=== PATIENT | male | born 1965 | race African-American/Black ===

== ENCOUNTER 2018-07-12 16:33 | Emergency (ER) | payer BC ==
[2018-07-12] MEDS ORDERED: MORPHINE SULFATE 10 MG/ML INJ IM ONE (16:51)
[2018-07-12] MEDS ORDERED: DIPH/PERTUSS(ACELL)/TETANUS VAC/PF 0.5 ML SYR (>=10YO) IM ONE (16:53)
--- NOTE | 2018-07-12 17:43 | RADIOLOGY REPORT (SQ) ---
EXAM DESCRIPTION: HAND RIGHT 3 VIEWS COMPLETED DATE/TIME: 07/12/2018 5:29 pm REASON FOR STUDY: crush injury COMPARISON: None. EXAM PARAMETERS: NUMBER OF VIEWS: Three views. TECHNIQUE: AP, lateral and oblique radiographic images acquired of the right hand. LIMITATIONS: None. FINDINGS: MINERALIZATION: Normal. BONES: Comminuted open fracture of the distal phalanx of the right 2nd digit. No other fracture Or d islocation. . JOINTS: No effusion. SOFT TISSUES: Distal soft tissue swelling. No radiopaque foreign body. OTHER: No other significant finding. IMPRESSION: Comminuted open fracture of the distal phalanx of the right 2nd digit. TECHNICAL DOCUMENTATION: JOB ID: [id number] [place]-72 2010 [employer]- All Rights Reserved Reading location - IP/workstation name: [employer]
[2018-07-12] MEDS ORDERED: KETOROLAC TROMETHAMINE INJ/PF 30 MG/1 ML SDV IV ONE (17:57)
--- NOTE | 2018-07-12 17:57 | ER Document Report ---
ED Hand/Wrist Injury - General Chief Complaint: Finger Injury Stated Complaint: FINGER INJURY Time Seen by Provider: 07/12/18 17:20 Primary Care Provider: JOVANI OWUSU MD [Primary Care Provider] - Follow up as needed Notes: 53-year-old male to the emergency department for evaluation of laceration to the second digit on the right hand and third digit on the right hand. Patient dropped a heavy dresser on it while moving the object. Unknown last tetanus. Bleeding has been controlled. Appears to be a near complete amputation. Sensation is lost to the distal tip. TRAVEL OUTSIDE OF THE [place] IN LAST 30 DAYS: No - HPI Injury to: Index finger Onset: Just prior to arrival Where: Home Timing: Constant Quality of pain: Achy Severity: Moderate Pain Level: 3 Context: Crush - Related Data Allergies/Adverse Reactions: No Known Allergies Allergy (Verified 07/12/18 16:35) Past Medical History - General Information source: Patient - Social History Smoking Status: Never Smoker Frequency of alcohol use: None Drug Abuse: None Family History: None, Reviewed & Not Pertinent Patient has suicidal ideation: No Patient has homicidal ideation: No - Past Medical History Cardiac Medical History: Reports: Hx Hypercholesterolemia, Hx Hypertension Renal/ Medical History: Denies: Hx Peritoneal Dialysis Past Surgical History: Reports: Hx Orthopedic Surgery - left foot surgery for osteomyelitis in the distant past - Immunizations Hx Diphtheria, Pertussis, Tetanus Vaccination: Yes Review of Systems - Review of Systems Constitutional: denies: Fever, Weakness Cardiovascular: denies: Chest pain, Palpitations, Heart racing Respiratory: denies: Cough, Short of breath, Wheezing Gastrointestinal: denies: Abdominal pain, Diarrhea, Nausea, Vomiting Musculoskeletal: See HPI, Other - Fingertip laceration/amputation and pain. Neurological/Psychological: Numbness - The distal tip of the second digit on the right hand Physical Exam - Vital signs Vitals: Temp Pulse Resp BP Pulse Ox 98.0 F 80 16 135/89 H 98 07/12/18 17:18 07/12/18 17:18 07/12/18 17:18 07/12/18 17:18 07/12/18 17:18 Interpretation: Normal - General General appearance: Appears well, Alert - Respiratory Respiratory status: No respiratory distress Chest status: Nontender Breath sounds: Normal Chest palpation: Normal - Cardiovascular Rhythm: Regular Heart sounds: Normal auscultation Murmur: No - Extremities General upper extremity: Other - There is a near complete tuft amputation of the second digit of the distal phalanx on the right hand. Sensation is absent. Tendon function appears to be intact. Both bone present. There is 2 small lacerations on the third digit dorsally of the right hand. - Skin Notes: Laceration/amputation as noted above. Course - Re-evaluation Re-evalutation: 07/12/18 18:28 I have consulted with the hand surgeon, Dr. Mullins who is coming in to see the patient here shortly. Antibiotics, pain medication, tetanus has been updated. 07/12/18 18:29 Hand X-Ray 07/12/18 16:52 IMPRESSION: Comminuted open fracture of the distal phalanx of the right 2nd di git. 07/12/18 20:42 Orthopedic hand specialist has attempted to repair the amputated fingertip. Has placed in splint. Antibiotics, tetanus and pain medication have been given. He will follow-up with orthopedic surgeon on Saturday. At this time will DC in stable condition. - Vital Signs Vital signs: Temp Pulse Resp BP Pulse Ox 98.0 F 74 16 142/94 H 98 07/12/18 17:18 07/12/18 18:00 07/12/18 18:00 07/12/18 18:00 07/12/18 18:00 Discharge - Discharge Clinical Impression: Traumatic amputation of fingertip Qualifiers: Encounter type: initial encounter Qualified Code(s): S68.119A - Complete traumatic metacarpophalangeal amputation of unspecified finger, initial encounter Condition: Good Disposition: HOME, SELF-CARE Instructions: Open Finger Tuft Fracture ([facility]) Additional Instructions: Please follow-up with the hand specialist Dr. Mullins. Pain medication as needed. Antibiotics as prescribed. Return for any worsening symptoms or concerns. Prescriptions: Clindamycin HCl 300 mg PO Q6H 7 Days #28 capsule Hydrocodone/Acetaminophen [[place] 5-325 mg Tablet] 1 tab PO TID PRN 3 Days #10 tablet PRN Reason: Referrals: JOVANI OWUSU MD [Primary Care Provider] - Follow up as needed JOSE DE JESUS MULLINS DO [ACTIVE STAFF] - 07/14/18
[2018-07-12] MEDS ORDERED: CEFAZOLIN 1 GM/D5W RTU 1 GM/50 ML RTUPB IV SCH (18:00)
[2018-07-12] MEDS ORDERED: LIDOCAINE 1% INJ-PF (10 MG/ML) 30 ML SDV INJ ONE (18:22)
[2018-07-12] MEDS ORDERED: FENTANYL CITRATE INJ/PF 100 MCG/2 ML AMPUL IV ONE (19:16)
[2018-07-12] MEDS ORDERED: CEFAZOLIN 1 GM/D5W RTU 1 GM/50 ML RTUPB IV ONE (19:56)
[2018-07-12] MEDS ORDERED: HYDROCODONE/ACETAMINOPHEN 5-325 MG (6 TAB/ER DISP) PO PRN (20:26)
--- NOTE | 2018-07-12 21:07 | PDOC H&P ---
History of Present Illness Admission Date/PCP: JOVANI OWUSU Patient complains of: Crush injury right index middle finger. History of Present Illness: JERALD SLOAN is a 53 year old male who was moving a heavy dresser when it dropped onto his right index and middle finger. Patient had notable open wound and bleeding at the time of injury. Promptly presents emergency room where he was started on tetanus and antibiotics. Patient complains of numbness along the tip of the index finger no numbness along the middle finger. Pain 3/5. Past Medical History Cardiac Medical History: Reports: Hyperlipidema, Hypertension Past Surgical History Past Surgical History: Reports: Orthopedic Surgery - left foot surgery for osteomyelitis in the distant past Social History Smoking Status: Never Smoker Frequency of Alcohol Use: None Hx Recreational Drug Use: No Hx Prescription Drug Abuse: No Family History Family History: None, Reviewed & Not Pertinent Parental Family History Reviewed: No Children Family History Reviewed: No Sibling(s) Family History Reviewed.: No Medication/Allergy Home Medications: Aspirin [Aspirin 81 mg Chewable Tablet] 81 mg PO DAILY #0 tab.chew 12/12/14 Clindamycin HCl 300 mg PO Q6H 7 Days #28 capsule 07/12/18 Hydrocodone/Acetaminophen [[place] 5-325 mg Tablet] 1 tab PO TID PRN 3 Days #10 tablet 07/12/18 Allergies/Adverse Reactions: No Known Allergies Allergy (Verified 07/12/18 16:35) Review of Systems Constitutional: ABSENT: chills, fever(s), headache(s), weight gain, weight loss Eyes: ABSENT: visual disturbances Ears: ABSENT: hearing changes Cardiovascular: ABSENT: chest pain, dyspnea on exertion, edema, orthropnea, palpitations Respiratory: ABSENT: cough, hemoptysis Gastrointestinal: ABSENT: abdominal pain, constipation, diarrhea, hematemesis, hematochezia, nausea, vomiting Genitourinary: ABSENT: dysuria, hematuria Musculoskeletal: PRESENT: as per HPI Integumentary: ABSENT: rash, wounds Neurological: ABSENT: abnormal gait, abnormal speech, confusion, dizziness, focal weakness, syncope Psychiatric: ABSENT: anxiety, depression, homidical ideation, suicidal ideation Endocrine: ABSENT: cold intolerance, heat intolerance, menstrual abnormalities, polydipsia, polyuria Hematologic/Lymphatic: ABSENT: easy bleeding, easy bruising, lymphadenopathy Physical Exam Vital Signs: Temp Pulse Resp BP Pulse Ox 98.0 F 74 16 125/84 98 02/23/19 17:18 07/12/18 18:00 07/12/18 20:30 07/12/18 20:30 07/12/18 20:30 Intake & Output 07/11/18 07/12/18 07/13/18 06:59 06:59 06:59 Intake Total 50 Balance 50 General appearance: PRESENT: no acute distress, well-developed, well-nourished Head exam: PRESENT: atraumatic, normocephalic Eye exam: PRESENT: conjunctiva pink, EOMI, PERRLA. ABSENT: scleral icterus Ear exam: PRESENT: normal external ear exam Mouth exam: PRESENT: moist, tongue midline Neck exam: PRESENT: full ROM. ABSENT: carotid bruit, JVD, lymphadenopathy, thyromegaly Cardiovascular exam: PRESENT: RRR. ABSENT: diastolic murmur, rubs, systolic murmur Pulses: PRESENT: normal dorsalis pedis pul, +2 pedal pulses bilateral Vascular exam: PRESENT: normal capillary refill GI/Abdominal exam: PRESENT: normal bowel sounds, soft. ABSENT: distended, guarding, mass, organolmegaly, rebound, tenderness Rectal exam: PRESENT: deferred Musculoskeletal exam: PRESENT: other - Right index finger: Crush injury along the distal phalanx with irregularity of the skin flaps. Tip cool to touch with poor skin turgor and cap refill. Level of involvement extends to the germinal matrix. Exposed bone noted. No gross contamination. Small skin flaps remaining intact along the ulnar border Right middle finger: Superficial laceration along the middle phalanx volar and dorsal however does not extend ci rcumferentially. Cap refill less than 2 seconds. Normal two-point discrimination. Normal skin turgor. Full DIP/PIP joint range of motion Neurological exam: PRESENT: alert, awake, oriented to person, oriented to place, oriented to time, oriented to situation, CN II-XII grossly intact. ABSENT: motor sensory deficit Psychiatric exam: PRESENT: appropriate affect, normal mood. ABSENT: homicidal ideation, suicidal ideation Skin exam: PRESENT: dry, intact, warm. ABSENT: cyanosis, rash Results Impressions: Hand X-Ray 07/12/18 16:52 IMPRESSION: Comminuted open fracture of the distal phalanx of the right 2nd digit. Status: Image reviewed by me - Comminuted fracture of the index distal phalanx. No associated fractures. Assessment & Plan - Diagnosis (1) Traumatic amputation of fingertip Qualifiers: Encounter type: initial encounter Qualified Code(s): S68.119A - Complete traumatic metacarpophalangeal amputation of unspecified finger, initial encounter Is this a current diagnosis for this admission?: Yes Plan: Patient sustained traumatic amputation to his right index finger with open fracture. No evidence of involvement to bone or neurovascular structures or tendon to the middle finger. Unfortunately given the severity of patient's crush injury there is high likelihood that the tip will be nonviable however there is a small section of skin remaining intact which may allow adequate bone flow. We discussed various options including revision amputation versus irrigation debridement with closure of the fingertip despite knowing the risk of non-viability and thus in that situation it would likely function as a composite graft. After discussing these options patient has elected to proceed with irrigation debridement and closure understanding the possibility of non- viability. After discussing these options risks and benefits were explained including infection, tip necrosis necessitating amputation, postoperative pain, cold insensitivity, nail deformity patient verbalized understanding consented for the procedure. Patient will follow-up the office with me in 2 days for wound check. Will be started on p.o. antibiotics postoperatively. See operative note for detail of procedure.
--- NOTE | 2018-07-12 21:12 | Operative Report ---
Operative Report DATE OF SURGERY: 07/12/18 PREOPERATIVE DIAGNOSIS: Right index finger open distal phalanx fracture with pa rtial amputation POSTOPERATIVE DIAGNOSIS: Same OPERATION: Excisional debridement right index finger including nonviable skin and portions of bone with complex closure including nailbed repair. SURGEON: JOSE DE JESUS MULLINS ANESTHESIA: Local COMPLICATIONS: None ESTIMATED BLOOD LOSS: Minimal PROCEDURE: Procedure in detail: Risk and benefits of the surgical procedure were explained patient verbalized understanding consented for the surgical procedure. Patient had received Ancef in the emergency room. Digital block was performed to the index and middle finger utilizing 15 cc of 1% lidocaine without epinephrine once adequate anesthetized hand was wrapped with Betadine and draped in a sterile fashion. There was irregularly to the to the index finger with portions of intact distal phalanx with comminution of adjacent fragments. Nonviable fragments were excised including skin. Distal tip remained cool to touch. No involvement extended back to the germinal matrix. The wound was copiously irrigated with normal saline and Betadine. The wound was then reapproximated with 4-0 nylon suture involving the segments volarly which were irregular in nature. The nail plate was then secured to to the germinal matrix proximally with interrupted 4-0 chromic gut suture. At completion of closure there was good fixation of the distal tip however continued to have poor capillary refill. There was mild bleeding along the proximal aspect of the wound. Middle finger was inspected laceration involved superficial skin wounds no deep involvement. Wound was dressed with Xeroform, Lucien and a 2 inch Elias bandage all loosely applied. Patient tolerated procedure well.
[2018-07-12 21:58] VITALS: BP 142/93
== END 2018-07-12 22:06 | disposition home or self-care (01) ==
LOC: ER 16:33
DX: S68.620A Partial traumatic transphalangeal amputation of right index finger, initial encounter (principal); W20.8XXA Other cause of strike by thrown, projected or falling object, initial encounter; Y93.89 Activity, other specified; Y92.009 Unspecified place in unspecified non-institutional (private) residence as the place of occurrence of the external cause; I10 Essential (primary) hypertension; Z23 Encounter for immunization
CPT/HCPCS: 12031; 99284; 96372; 90471; 96375; 96365; 73130; 90715; J0690; J3010; J3490; J1885; J2270